=== PATIENT | female | born 1965 | race Caucasian/White ===

== ENCOUNTER 2016-07-27 11:32 | Emergency (ER) | payer BC ==
[~2016-07-27] VITALS: Ht 162.6 cm; Wt 90.8 kg
[~2016-07-27 11:32] MED LIST: ATEN-171 PO; CHOL100010 PO; MULT-506 PO; VLT/75 PO
[2016-07-27 11:46] VITALS: TEMP 36.9; Ht 162.6 cm; Wt 90.8 kg
[2016-07-27 12:07] VITALS: O2SAT 98
[2016-07-27] MEDS ORDERED: METHYLPREDNISOLONE 125 MG VIAL IV STA (12:10)
[2016-07-27] MEDS ORDERED: ALBUT/IPRATROP 3MG/0.5MG NEB 3 ML VIAL INH STA (12:10)
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
[2016-07-27] MEDS ORDERED: SERT25TA PO (12:20)
[2016-07-27 12:26] LABS: BASO % 0.2 %; BASO ABS # 0.03 K/uL (0-0.2); COMPLETE YES; EOS % 0.9 %; IG% 0.4 %; LYMPH % 32.1 %; LYMPH ABS # 4.54 K/uL (1.2-3.4); MEAN CELL VOLUME 91.7 fL (80-100); MEAN CORPUSCULAR HEMOGLOBIN 33.5 pg (25-34); MEAN CORPUSCULAR HGB CONC 36.5 g/dl (32-36); MEAN PLATELET VOLUME 9.8 fL (7.4-10.4); MONO % 5.5 %; NEUT % 60.9 %; PLATELET COUNT 315 K/uL (130-400); RED BLOOD COUNT 4.36 M/uL (4.2-5.4); WHITE BLOOD COUNT 14.14 K/uL (4.8-10.8)
[2016-07-27 12:35] LABS: PROTHROMBIN TIME (PATIENT) 10.5 SECONDS (9.0-12.0)
[2016-07-27 12:43] LABS: BUN/CREATININE RATIO 12.7 (10-20); CALCIUM 9.8 mg/dl (8.5-10.1); CREATININE 0.87 mg/dl (0.60-1.20); MAGNESIUM 1.8 mg/dl (1.8-2.4); POTASSIUM 3.3 mmol/L (3.5-5.1)
[2016-07-27 12:52] LABS: ALB/GLOB RATIO 1.1 (0.9-2); CKMB/CK RATIO 0.9 (0-3.0); THYROID STIMULATING HORMONE 1.92 uIu/ml (0.300-4.500)
[2016-07-27 12:58] LABS: PREG INTERNAL NEGATIVE QC NEG CLEAR BACKGROUND; PREG INTERNAL POSITIVE QC POS CONTROL LINE
--- NOTE | 2016-07-27 13:02 | DIAGNOSTIC IMAGING REPORT ---
CHEST ONE VIEW PORTABLE CLINICAL HISTORY: Atypical chest pain and shortness of breath COMPARISON STUDY: 06/04/2015 FINDINGS: The cardiac and mediastinal contours are normal. There is no evidence of focal pulmonary consolidation. There is no evidence of failure. No pleural effusions are visualized.[ There are postsurgical changes in the lower cervical spine. There are postsurgical changes involving the distal right clavicle. A linear opacity at left lung base is felt to be atelectatic. IMPRESSION: No active disease in the chest. Electronically signed by: David Rodríguez M.D. 07/27/2016 1:01 PM Dictated Date/Time: 07/27/2016 1:00 PM
[2016-07-27] MEDS ORDERED: ONDANSETRON INJ 2 MG/ML 2 ML VIAL IV STA (13:43)
[2016-07-27] MEDS ORDERED: MoRPHine SULFATE 4 MG/ML 1 ML CARP\\VIAL IV PRN (13:45)
[2016-07-27] MEDS ORDERED: OPTIRAY 320 IV PRN (14:00)
[2016-07-27 14:23] LABS: MANUAL MICROSCOPIC REQUIRED? NO; REVIEW REQ? NO; URINE APPEARANCE CLEAR (CLEAR); URINE BILIRUBIN NEG (NEG); URINE COLOR YELLOW; URINE NITRITE NEG (NEG); UROBILINOGEN NEG (NEG)
--- NOTE | 2016-07-27 14:26 | DIAGNOSTIC IMAGING REPORT ---
CT ANGIOGRAPHY OF THE CHEST, PULMONARY EMBOLUS PROTOCOL CLINICAL HISTORY: Chest pain and shortness of breath. COMPARISON STUDY: Chest radiograph June 04, 2015 and July 27, 2016. TECHNIQUE: Following IV administration of 92 mL of Optiray-320, helical axial images of the chest were obtained utilizing the pulmonary embolus protocol. Maximal intensity projections and sagittal and coronal reformats were viewed on an independent 3D workstation. IV contrast was administered without complication. CT DOSE: 610.80 mGycm FINDINGS: No pulmonary emboli are identified. The size of the heart is normal. There is no pericardial effusion. There is no evidence of thoracic aortic dissection. There is a small hiatal hernia. No areas of consolidation are identified. Linear and groundglass opacity suggest atelectasis. No pneumothorax or pleural effusions present. The bony thorax and upper abdomen are unremarkable. There is no thoracic lymphadenopathy. IMPRESSION: 1. No pulmonary emboli identified. 2. Linear and ground glass opacities suggestive of atelectasis. No consolidation to suggest pneumonia. 3. No thoracic aortic dissection. Electronically signed by: Herbert Soler M.D. 07/27/2016 2:25 PM Dictated Date/Time: 07/27/2016 2:17 PM
[2016-07-27] MEDS ORDERED: AZITHROMYCIN 250 MG TAB PO STA (14:41)
[2016-07-27 14:45] VITALS: BP 126/77; PULSE 94; O2SAT 94
[2016-07-27] MEDS ORDERED: HYDR-5688 PO (14:58)
[2016-07-27] MEDS ORDERED: VNTHFA/IN INH (14:58)
[2016-07-27] MEDS ORDERED: PRED20TA2 PO (14:58)
[2016-07-27] MEDS ORDERED: AZIT500T26 PO (14:58)
== END 2016-07-27 15:13 | disposition home or self-care (01) ==
LOC: C.EDB 11:33
DX: J40 Bronchitis, not specified as acute or chronic (principal); R07.2 Precordial pain; R00.0 Tachycardia, unspecified; J44.9 Chronic obstructive pulmonary disease, unspecified; I10 Essential (primary) hypertension; M19.90 Unspecified osteoarthritis, unspecified site; F17.200 Nicotine dependence, unspecified, uncomplicated; Z87.442 Personal history of urinary calculi; Z98.1 Arthrodesis status; Z98.890 Other specified postprocedural states; Z82.49 Family history of ischemic heart disease and other diseases of the circulatory system; Z83.3 Family history of diabetes mellitus; Z82.0 Family history of epilepsy and other diseases of the nervous system; Z79.52 Long term (current) use of systemic steroids

== ENCOUNTER 2016-08-30 21:08 | Emergency (ER) | payer BC ==
[~2016-08-30] VITALS: Ht 162.6 cm; Wt 93.9 kg
[~2016-08-30 21:08] MED LIST changes: +AZIT500T26 PO; +HYDR-5688 PO; -MULT-506 PO; +PRED20TA2 PO; +SERT25TA PO; -VLT/75 PO; +VNTHFA/IN INH
[2016-08-30 21:15] VITALS: TEMP 36.7; Ht 162.6 cm; Wt 93.9 kg
[2016-08-30] MEDS ORDERED: SODIUM CHLORIDE 0.9% 1000ML 1,000 ML IV STA (22:50)
[2016-08-30] MEDS ORDERED: ONDANSETRON INJ 2 MG/ML 2 ML VIAL IV STA (22:50)
[2016-08-30] MEDS ORDERED: MoRPHine SULFATE 4 MG/ML 1 ML CARP\\VIAL IV STA (22:50)
[2016-08-30 22:58] LABS: HEMATOCRIT 37.8 % (37-47); MEAN CELL VOLUME 96.9 fL (80-100); MEAN CORPUSCULAR HEMOGLOBIN 35.1 pg (25-34); MEAN CORPUSCULAR HGB CONC 36.2 g/dl (32-36); MEAN PLATELET VOLUME 10.1 fL (7.4-10.4); PLATELET COUNT 311 K/uL (130-400); WHITE BLOOD COUNT 9.26 K/uL (4.8-10.8)
[2016-08-30] MEDS ORDERED: VNTHFA/IN INH (23:05)
[2016-08-30] MEDS ORDERED: ATEN50TA21 PO (23:05)
[2016-08-30] MEDS ORDERED: CHOL1CAP95 PO (23:05)
[2016-08-30] MEDS ORDERED: ZLF/50 PO (23:05)
[2016-08-30 23:24] LABS: URINE APPEARANCE CLEAR (CLEAR); URINE BILIRUBIN NEG (NEG); URINE COLOR YELLOW; URINE EPITHELIAL CELL AUTO 20-30 /lpf (0-5); URINE NITRITE NEG (NEG); URINE SPECIFIC GRAVITY 1.018 (1.000-1.030); UROBILINOGEN NEG (NEG); ZZUR CULT IF INDIC CLEAN CATCH NO
[2016-08-30 23:26] LABS: ALB/GLOB RATIO 1.1 (0.9-2); BUN/CREATININE RATIO 16.6 (10-20); CALCIUM 9.5 mg/dl (8.5-10.1); CREATININE 0.9 mg/dl (0.60-1.20); POTASSIUM 3.6 mmol/L (3.5-5.1)
[2016-08-30 23:27] LABS: MANUAL MICROSCOPIC REQUIRED? NO; REVIEW REQ? NO
[2016-08-30 23:58] LABS: BASO % 0.4 %; BASO ABS # 0.04 K/uL (0-0.2); COMPLETE YES; EOS % 2.9 %; IG% 0.4 %; LYMPH % 53.6 %; LYMPH ABS # 4.96 K/uL (1.2-3.4); MONO % 6.3 %; NEUT % 36.4 %
[2016-08-31] MEDS ORDERED: MoRPHine SULFATE 4 MG/ML 1 ML CARP\\VIAL IV STA (00:11)
[2016-08-31] MEDS ORDERED: KETOROLAC TROMETHAMINE 30 MG/ML VIAL IV STA (00:11)
[2016-08-31] MEDS ORDERED: DEXAMETHASONE SOD INJ 10 MG/ML VIAL IV ONE (00:15)
[2016-08-31] MEDS ORDERED: CYCL10TA6 PO (01:05)
[2016-08-31] MEDS ORDERED: PRED50TA PO (01:05)
[2016-08-31] MEDS ORDERED: HYDR-5688 PO (01:05)
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
[2016-08-31] MEDS ORDERED: NORCO 5/325MG HOME PACK PO ONE (01:15)
[2016-08-31 01:17] VITALS: BP 119/76; PULSE 69; O2SAT 96
--- NOTE | 2016-08-31 06:35 | DIAGNOSTIC IMAGING REPORT ---
CT OF THE ABDOMEN AND PELVIS WITHOUT CONTRAST, STONE PROTOCOL CLINICAL HISTORY: Right flank pain. COMPARISON STUDY: CT of the abdomen and pelvis March 31, 2015. TECHNIQUE: Helical axial images of the abdomen and pelvis were obtained without IV or oral contrast according to renal stone protocol. FINDINGS: Lung bases are clear. No renal, ureteral or bladder calculi are present. There is no hydronephrosis. Unenhanced images of the liver, spleen, adrenal glands and pancreas are normal. There is no evidence for a bowel obstruction. The appendix is normal. A water attenuation 2.7 x 1.9 cm tubular structure within the posterior right hemipelvis is unchanged since exam of February 15, 2008. This is benign given stability. There is no lymphadenopathy. Skeletal structures are unremarkable. IMPRESSION: 1. No urinary calculi or hydronephrosis. 2. No acute process within the abdomen or pelvis on unenhanced exam. Normal appendix. Electronically signed by: Herbert Soler M.D. 08/31/2016 6:34 AM Dictated Date/Time: 08/31/2016 6:30 AM
== END 2016-08-31 01:18 | disposition home or self-care (01) ==
LOC: C.EDB 21:09
DX: R10.30 Lower abdominal pain, unspecified (principal); M19.90 Unspecified osteoarthritis, unspecified site; I10 Essential (primary) hypertension; Z98.1 Arthrodesis status; Z82.49 Family history of ischemic heart disease and other diseases of the circulatory system; Z83.3 Family history of diabetes mellitus; Z82.0 Family history of epilepsy and other diseases of the nervous system; F17.210 Nicotine dependence, cigarettes, uncomplicated; Z79.899 Other long term (current) drug therapy

== ENCOUNTER → 2017-01-23 | Outpatient (CLI) | payer BC ==
[~2017-01-23] MED LIST changes: -ATEN-171 PO; +ATEN50TA21 PO; -AZIT500T26 PO; -CHOL100010 PO; +CHOL1CAP95 PO; -PRED20TA2 PO; -SERT25TA PO; +ZLF/50 PO
== END | disposition home or self-care (01) ==
LOC: C.PATHSPEC 11:29
PROVIDERS: ATTEND Nurse Practitioner Family
DX: R31.0 Gross hematuria (principal)

== ENCOUNTER → 2017-02-08 | Outpatient (CLI) | payer BC ==
[2017-02-08 13:06] LABS: BLOOD UREA NITROGEN 11 mg/dl (7-18); BUN/CREATININE RATIO 13.3 (10-20); CREATININE 0.81 mg/dl (0.60-1.20)
== END | disposition home or self-care (01) ==
LOC: C.LABBFT 09:41
PROVIDERS: ATTEND Nurse Practitioner Family
DX: R31.0 Gross hematuria (principal)

== ENCOUNTER → 2017-02-13 | Outpatient (CLI) | payer BC ==
[~2017-02-13] MED LIST changes: +ACET-1256 PO; +IBUP-103 PO; +MULT-506 PO; +OPTIRAY 320 IV PRN; +POTASSIUM CHLO PO; +PRLSR20 PO; +RIZA10TA18 PO
--- NOTE | 2017-02-13 15:07 | DIAGNOSTIC IMAGING REPORT ---
ABD/PELVIS IV CONTRAST ONLY CLINICAL HISTORY: 52 years-old Female presenting with macroscopic hematuria. TECHNIQUE: Multidetector CT of the abdomen and pelvis was performed after the administration of intravenous contrast. IV contrast: 119 mL of Optiray 320. A dose lowering technique was used consistent with the principles of ALARA (as low as reasonably achievable). COMPARISON: 08/30/2016. CT DOSE (mGy.cm): The estimated cumulative dose is 1097.76. FINDINGS: Litigation Attorney Associate topogram: Unremarkable. Lung bases: Minimal dependent changes likely atelectasis. Normal heart size. Mild coronary artery calcification. No pericardial or pleural effusion. Liver: Normal morphology. Few scattered subcentimeter hypodensities likely hepatic cysts or hamartomas. Patent hepatic vasculature. Biliary: No intrahepatic or extrahepatic biliary ductal dilatation. Normal gallbladder. Pancreas: Normal. Spleen: Normal. Adrenal glands: Normal. Kidneys and ureters: Possible filling defect within a posterior calyx of the interpolar region of the right kidney (series 3 image 200), although this may relate to a prominent renal papilla. No other evidence of a filling defect within the renal collecting systems. No convincing evidence of a suspicious renal or urothelial mass. Subcentimeter hypodensity at the upper pole of the left kidney, indeterminate but likely simple cyst. Within limitations of the phase of contrast, no evidence of nephrolithiasis. No hydronephrosis. Ureters normal. Bladder: Normal. Pelvic organs: Uterus and ovaries normal. Bowel: Limited diverticulosis of the descending colon. Normal appendix. No bowel obstruction. Peritoneal cavity: No free fluid or intraperitoneal gas. Vasculature: Aorta and IVC patent and normal in caliber. Lymph nodes: No enlarged lymph nodes in the abdomen or pelvis. Abdominal wall: Normal. Musculoskeletal: Degenerative changes of the spine. IMPRESSION: 1. Apparent filling defect within a posterior calyx of the interpolar region of the right kidney most likely relates to a prominent renal papilla. No other evidence of a filling defect within the collecting systems. No suspicious renal or urothelial mass. Within limitations of phase of contrast, no evidence of nephrolithiasis. No obstruction. Electronically signed by: Serafin Corea M.D. 02/13/2017 3:05 PM Dictated Date/Time: 02/13/2017 2:57 PM
== END | disposition home or self-care (01) ==
LOC: C.CTS 14:14
PROVIDERS: ATTEND Nurse Practitioner Family
DX: R31.0 Gross hematuria (principal)

== ENCOUNTER → 2017-04-13 | Day surgery (SDC) | payer BC ==
[2017-03-20 09:12] VITALS: BMI 37.0
[2017-03-20 09:24] VITALS: BMI 37.0
--- NOTE | 2017-03-20 09:38 | PAT Medication Instructions ---
Service Date Mar 20, 2017. Current Home Medication List Acetaminophen (Tylenol), 1,000 MG PO PRN Albuterol Hfa (Ventolin Hfa), 1 PUFF INH Q4H PRN for SOB/Wheezing Atenolol & Chlorthalidone (Tenoretic 50MG/25MG), 1 TAB PO QAM Ibuprofen Tab (Advil), 400 MG PO PRN Multivitamin (Multivitamin), 1 TAB PO QAM Omeprazole (Prilosec), 20 MG PO QAM Rizatriptan Benzoate (Maxalt), 10 MG PO UD PRN for RN Sertraline HCl (Sertraline HCl), 50 MG PO QAM [Potassium Chlo], 1 TAB PO QAM Medication Instructions For Your Scheduled Surgery - Hold the following medications 2 weeks prior to surgery: Ibuprofen Tab (Advil), 400 MG PO PRN - Hold the following medications the morning of surgery: [Potassium Chlo], 1 TAB PO QAM Multivitamin (Multivitamin), 1 TAB PO QAM - Take the following medications the morning of surgery with a sip of water: Acetaminophen (Tylenol), 1,000 MG PO PRN (okay to take up to 4 hour prior to surgery if needed) Albuterol Hfa (Ventolin Hfa), 1 PUFF INH Q4H PRN for SOB/Wheezing (if needed) Atenolol & Chlorthalidone (Tenoretic 50MG/25MG), 1 TAB PO QAM Omeprazole (Prilosec), 20 MG PO QAM Rizatriptan Benzoate (Maxalt), 10 MG PO UD PRN for RN (if needed) Sertraline HCl (Sertraline HCl), 50 MG PO QAM - Take the following medications as scheduled the night before surgery: Rizatriptan Benzoate (Maxalt), 10 MG PO UD PRN for RN (if needed) Albuterol Hfa (Ventolin Hfa), 1 PUFF INH Q4H PRN for SOB/Wheezing (if needed) Acetaminophen (Tylenol), 1,000 MG PO PRN (if needed) If you have any questions please call us at [phone] or [phone] or [phone]
[2017-03-20 10:23] LABS: BASO % 0.4 %; BASO ABS # 0.03 K/uL (0-0.2); COMPLETE YES; EOS % 2.9 %; IG% 0.1 %; LYMPH % 37.9 %; LYMPH ABS # 3.18 K/uL (1.2-3.4); MEAN CELL VOLUME 95.6 fL (80-100); MEAN CORPUSCULAR HEMOGLOBIN 32.6 pg (25-34); MEAN CORPUSCULAR HGB CONC 34.1 g/dl (32-36); MONO % 5.4 %; NEUT % 53.3 %; PLATELET COUNT 296 K/uL (130-400); RED BLOOD COUNT 3.87 M/uL (4.2-5.4); WHITE BLOOD COUNT 8.39 K/uL (4.8-10.8)
[2017-03-20 10:28] LABS: URINE APPEARANCE CLEAR (CLEAR); URINE BILIRUBIN NEG (NEG); URINE COLOR YELLOW; URINE NITRITE NEG (NEG); URINE PH 5.5 (4.5-7.5); UROBILINOGEN NEG (NEG)
[2017-03-20 10:29] LABS: MANUAL MICROSCOPIC REQUIRED? NO; REVIEW REQ? NO
[2017-03-20 10:31] LABS: BUN/CREATININE RATIO 18.2 (10-20); CALCIUM 9.1 mg/dl (8.5-10.1); CREATININE 0.71 mg/dl (0.60-1.20)
[~2017-04-13] VITALS: Ht 162.6 cm; Wt 98.6 kg
[~2017-04-13] MED LIST changes: +ACET-749 PO; +ACETAMINOPHEN/CODEINE 300/30MG TAB PO PRN; +ATROPINE SULFATE 0.1 MG/ML 5ML SYR IV PRN; +BACITRACIN 50000 UNIT VIAL ONE; +BUPIVACAINE/EPINEPHRINE 0.5% MPF 1:200,000 30 ML VIAL ONE; -CHOL1CAP95 PO; +CLINDAMYCIN PHOS 2% VAG CR 40 GM TUBE ONE; +DEXAMETHASONE SOD INJ 4 MG/ML VIAL ONE; +DOCU-94 PO; +EpHEDrine SULFATE INJ 50 MG/ML AMP IV PRN; +FENTANYL CITRATE INJ 50 MCG/1 ML 2 ML VIAL IV PRN; +FENTANYL CITRATE INJ 50 MCG/1 ML 2 ML VIAL ONE; +GENTAMICIN INJ 120 MG in DEXTROSE 5% 100ML 100 ML IV SCH; -HYDR-5688 PO; +HYDROmorphone INJ 1 MG/ML SYR IV PRN; +LACTATED RINGER'S 1000ML 1,000 ML IV SCH; +LIDOCAINE HCL 2% 2 ML VIAL (20MG/ML) ONE; +MIDAZOLAM HCL 1 MG/ML 2ML VIAL ONE; +ONDANSETRON INJ 2 MG/ML 2 ML VIAL IV PRN; +ONDANSETRON INJ 2 MG/ML 2 ML VIAL ONE; -OPTIRAY 320 IV PRN; +PROPOFOL IV EMULSION 10 MG/ML 20 ML VIAL IV ONE; +SULF800T23 PO
[2017-04-13 09:29] VITALS: BP 119/70; PULSE 59; TEMP 36.9; O2SAT 97; Ht 162.6 cm; Wt 98.6 kg
--- NOTE | 2017-04-13 11:22 | History & Physical Bridge Note ---
H&P Re-Evaluation Bridge Note: I have examined the patient, reviewed the History & Physical and in the interval since the performance of the History & Physical I have noted the following changes of clinical significance: No changes noted
--- NOTE | 2017-04-13 13:12 | Discharge Instructions ---
Discharge Instructions Date of Service Apr 13, 2017. Admission Reason for Admission: Stress Urinary Incontinence Discharge Discharge Diagnosis / Problem: Stress urinary incontinence Discharge Goals Goal(s): Decrease discomfort, Improve disease control, Therapeutic intervention Activity Recommendations Activity Limitations: as noted below Lifting Limitations: no more than 10 pounds (x 6 weeks) Exercise/Sports Limitations: rest today, gradually increase as tolerated ( Light activity x 4 weeks) May Resume Sexual Activity: after follow-up appointment (when cleared by Dr. Stallworth) Shower/Bathe: tomorrow (no tub baths x 3 weeks) Driving or Machine Use: resume 3 days after discharge (Do not drive while taking narcotics. ) 1. You have been prescribed the antibiotic Bactrim DS. Finish all as directed. 2. Hold ibuprofen/Aleve x 3 days. 3. Do not take Tylenol in addition to Tylenol #3. 4. Follow-up with Dr. Stallworth as scheduled. Please call our office at [phone] if you need to reschedule for any reason. . Discharge Diet Recommended Diet: Regular Diet Procedures Procedures Performed: Mid Urethral Sling Transobturator Approach; Cystoscopy Pending Studies Studies pending at discharge: no Medical Emergencies . Who to Call and When: Medical Emergencies: If at any time you feel your situation is an emergency, please call 911 immediately. . Non-Emergent Contact Non-Emergency issues call your: Urologist Call Non-Emergent contact if: temperature is above 101.5, your pain is not controlled, your pain is worsening, your pain is unusual for you, your pain is concerning you, you have any medication questions . . "Provider Documentation" section prepared by Delfina Dolan. . VTE Core Measure Inpt VTE Proph given/why not?: SCD's [place] Drug Monitoring Program Search Results: patient reviewed within database, no issues identified
--- NOTE | 2017-04-13 13:18 | [facility] Post Operative Brief Note ---
Immediate Operative Summary Operative Date Apr 13, 2017. Pre-Operative Diagnosis Stress Urinary Incontinence Post-Operative Diagnosis Same as preop Procedure(s) Performed Mid Urethral Sling, Transobturator Approach; Cystoscopy Surgeon Dr. Julissa Stallworth Gift Officer Surgeon(s) Delfina Dolan NP Estimated Blood Loss 20 ml Findings Excellent sling placement, tension free, normal cystoscopy, mild cystocoele Specimens None per Surgeon Drains NA Anesthesia GALMA + local Complication(s) None Disposition Recovery Room / PACU
--- NOTE | 2017-04-13 13:24 | [facility] Operative Report ---
Operative Report Operative Date Apr 13, 2017. Pre-Operative Diagnosis Stress Urinary Incontinence Post-Operative Diagnosis Same as preop Procedure(s) Performed Mid Urethral Sling, Transobturator Approach; Cystoscopy Surgeon Dr. Julissa Stallworth Director Of Software Development Surgeon(s) Delfina Dolan NP Estimated Blood Loss 20 ml Findings Excellent sling placement, tension free, normal cystoscopy, mild cystocoele Specimens None per Surgeon Drains NA Anesthesia GALMA + local Complication(s) None Disposition Recovery Room / PACU Indications 52-year-old female with stress urinary incontinence demonstrated in office here today for mid urethral sling to manage her disease. Please see H&P for further details. SCDs were used for DVT prophylaxis and intravenous antibiotics provided informed gentamicin. Consent reviewed preoperatively with patient and family. Description of Procedure Patient was properly identified and brought into the operative suite after identification of appropriate consent of the chart. General anesthesia with laryngeal mask was initiated and patient was prepped and draped in the standard fashion for this procedure. Full timeout procedure was followed. Patient was placed in Trendelenburg and dorsal lithotomy with a weighted speculum in the vaginal canal. Bladder was emptied with a 16 [place] Shafer catheter and re- emptied prior to any trocar passes or manipulations. Allis clamp was placed under the meatus and anterior vaginal canal was anesthetized using local with epinephrine. Midline incision was made using a 15 blade and, using Metzenbaum scissors and peanuts was dissected to the pelvic sidewall on both sides creating a passage sufficiently large for the placement of the surgeon's finger. Local and 15 blade were used to make incisions at the superior aspect of the obturator fossa at the same level as the clitoris. Using a [employer] trans-obturator Trocar was passed first on the left-hand side then on the right into the vaginal incision. Cystoscopy using a 70 lens was performed after each trocar pass with complete distention of the bladder ensuring a lack of bladder injury from the trocar. Patient was noted to have a mild cystocele with no intravesical papillary lesions, masses or mucosal abnormalities or stones. Ureteral orifices were noted in the normal anatomic location and noted to be effluxing clear yellow urine. Great care was also taken to avoid buttonholing of the vaginal mucosa. After this was confirmed on each pass the sling was engaged and brought through the trans-obturator incisions until it lay in a tension-free fashion at the level of the mid urethra. Tensioning sutures were removed as was the sling sheath which was then divided at the level of the skin and buried in the subcutaneous tissues. Excellent tension-free location was again confirmed with easy passage of Metzenbaum scissors underneath the sling and the tensioning device within the sling itself was also removed. Vaginal incision was closed using a running 2-0 Vicryl suture and skin incisions were closed using Dermabond. Shafer catheter was removed after draining the bladder. Vaginal packing was placed and anesthesia was reversed. Patient was transferred to the recovery room in stable condition. Follow-up care: Patient will be discharged home after successful trial of void. Prescription for Colace, pain medication and antibiotics in the postoperative period are provided. Postoperative appointment is confirmed. Expected postoperative course is reviewed with the patient and family. Patient is instructed to contact us should she note any fevers, chills, nausea, vomiting or other difficulties in the postoperative period. I attest to the content of the Intraoperative Record and any orders documented therein. Any exceptions are noted below.
[2017-04-13 13:55] VITALS: BP 115/71; PULSE 59; TEMP 36.7; O2SAT 95
--- NOTE | 2017-04-13 13:56 | Anesthesiology Progress Note ---
Anesthesia Post Op Note Date & Time Apr 13, 2017 at 13:56 Vital Signs Pain Intensity: 0 Vital Signs Past 12 Hours Date Time Temp Pulse Resp B/P (MAP) Pulse Ox O2 Delivery O2 Flow Rate FiO2 04/13/17 13:45 36.6 58 16 119/78 94 Room Air 04/13/17 13:40 61 16 124/76 94 Room Air 04/13/17 13:30 59 16 117/76 95 Oxymask 04/13/17 13:20 60 16 123/81 100 Oxymask 04/13/17 13:10 37.1 68 16 142/86 96 Oxymask 10 04/13/17 09:29 36.9 59 16 119/70 (86) 97 Room Air Notes Mental Status: alert / awake / arousable, participated in evaluation Pt Amnestic to Procedure: Yes Nausea / Vomiting: adequately controlled Pain: adequately controlled Airway Patency, RR, SpO2: stable & adequate BP & HR: stable & adequate Hydration State: stable & adequate Anesthetic Complications: no major complications apparent
[2017-04-13 14:25] VITALS: BP 130/73; PULSE 65; O2SAT 95
[2017-04-13 14:55] VITALS: BP 131/77; PULSE 67; TEMP 36.6; O2SAT 97
== END | disposition home or self-care (01) ==
LOC: C.ACU 09:15
PROVIDERS: ATTEND Urology
DX: N39.3 Stress incontinence (female) (male) (principal); R31.0 Gross hematuria; I10 Essential (primary) hypertension; N20.0 Calculus of kidney; E66.9 Obesity, unspecified; Z68.37 Body mass index [BMI] 37.0-37.9, adult; M17.12 Unilateral primary osteoarthritis, left knee; F32.9 Major depressive disorder, single episode, unspecified; F41.1 Generalized anxiety disorder; E78.5 Hyperlipidemia, unspecified; Z98.890 Other specified postprocedural states; Z98.51 Tubal ligation status; Z88.5 Allergy status to narcotic agent; Z88.1 Allergy status to other antibiotic agents; Z87.891 Personal history of nicotine dependence; Z82.49 Family history of ischemic heart disease and other diseases of the circulatory system; Z84.1 Family history of disorders of kidney and ureter

== ENCOUNTER → 2017-05-12 | Outpatient (CLI) | payer BC ==
[~2017-05-12] MED LIST changes: -ACETAMINOPHEN/CODEINE 300/30MG TAB PO PRN; -ATROPINE SULFATE 0.1 MG/ML 5ML SYR IV PRN; -BACITRACIN 50000 UNIT VIAL ONE; -BUPIVACAINE/EPINEPHRINE 0.5% MPF 1:200,000 30 ML VIAL ONE; -CLINDAMYCIN PHOS 2% VAG CR 40 GM TUBE ONE; -DEXAMETHASONE SOD INJ 4 MG/ML VIAL ONE; -DOCU-94 PO; -EpHEDrine SULFATE INJ 50 MG/ML AMP IV PRN; -FENTANYL CITRATE INJ 50 MCG/1 ML 2 ML VIAL IV PRN; -FENTANYL CITRATE INJ 50 MCG/1 ML 2 ML VIAL ONE; -GENTAMICIN INJ 120 MG in DEXTROSE 5% 100ML 100 ML IV SCH; -HYDROmorphone INJ 1 MG/ML SYR IV PRN; -LACTATED RINGER'S 1000ML 1,000 ML IV SCH; -LIDOCAINE HCL 2% 2 ML VIAL (20MG/ML) ONE; -MIDAZOLAM HCL 1 MG/ML 2ML VIAL ONE; -ONDANSETRON INJ 2 MG/ML 2 ML VIAL IV PRN; -ONDANSETRON INJ 2 MG/ML 2 ML VIAL ONE; -PROPOFOL IV EMULSION 10 MG/ML 20 ML VIAL IV ONE; -SULF800T23 PO
--- NOTE | 2017-05-12 11:43 | DIAGNOSTIC IMAGING REPORT ---
LUMBAR SPINE W/O CONTRAST HISTORY: Pain BACK PAIN TECHNIQUE: Multiplanar multisequence MRI of the lumbar spine was performed without the use of contrast. COMPARISON: 11/26/2014 FINDINGS: For the purpose of the report the L5-S1 disc space will be located on axial image 23 of 25. Considerable degenerative disc changes throughout. This is most prominent at L2-L3 and is unchanged from the prior exam. L1-L2: Mild broad-based bulging disc similar as compared to the prior study. Minimal impact anterior thecal sac. L2-L3: Broad-based disc herniation. Significant narrowing of the right as well as left neural foramina. These findings are perhaps slightly progressive as compared to the prior study. L3-L4: Broad-based bulging disc. Minimal impact anterior thecal sac. Neuroforamina patent bilaterally. L4-L5: Slightly progressive multifactorial narrowing of the spinal canal. Mild narrowing neuroforamina bilaterally similar compared to the prior study. L5-S1: No significant central canal or neural foraminal narrowing. IMPRESSION: 1. Broad-based disc herniation L2-L3 mildly progressive compared to the prior study. Moderate narrowing neuroforamina bilaterally also slightly progressive 2. Multifactorial narrowing of the spinal canal at L4-L5 also slightly progressive from the prior exam. Mild/moderate narrowing of the neuroforamina bilaterally also slightly progressive 3. Considerable degenerative disc change throughout the remainder of the lumbar spine unaltered from the prior exam. The above report was generated using voice recognition software. It may contain grammatical, syntax or spelling errors. Electronically signed by: Spenser Beaver M.D. 05/12/2017 11:41 AM Dictated Date/Time: 05/12/2017 11:36 AM
== END | disposition home or self-care (01) ==
LOC: C.MRI 09:44
PROVIDERS: ATTEND Physician Assistant
DX: M43.16 Spondylolisthesis, lumbar region (principal); M51.36 Other intervertebral disc degeneration, lumbar region; M51.26 Other intervertebral disc displacement, lumbar region; M48.061 Spinal stenosis, lumbar region without neurogenic claudication

== ENCOUNTER 2017-10-26 21:06 | Emergency (ER) | payer BC ==
[~2017-10-26] VITALS: Ht 165.1 cm; Wt 93.0 kg
[~2017-10-26 21:06] MED LIST changes: -ACET-749 PO; -ATEN50TA21 PO; -VNTHFA/IN INH; -ZLF/50 PO
[2017-10-26 21:08] VITALS: TEMP 36.6; Ht 165.1 cm; Wt 93.0 kg
[2017-10-26] MEDS ORDERED: POTA-74 PO (22:05)
[2017-10-26] MEDS ORDERED: KETOROLAC TROMETHAMINE 60 MG/2 ML VIAL IM STA (22:13)
--- NOTE | 2017-10-26 22:47 | DIAGNOSTIC IMAGING REPORT ---
THORACIC SPINE 3 VIEWS, LUMBAR SPINE 5 VIEWS HISTORY: back pain, L>R COMPARISON: Lumbar spine MRI 05/12/2017. Thoracic spine radiograph 09/02/2014. FINDINGS: There is no fracture. Cervical spinal fusion hardware is again noted. Mild degenerative disease throughout the majority of the thoracic spine. Mild to moderate disc space narrowing and endplate osteophytes within the lower thoracic spine at T11-T12 and T12-L1. There is also moderate disc space narrowing at L1-L2 and mild disc space narrowing at L4-L5. No change in the grade I anterolisthesis of L4 and L5. Moderate facet degenerative changes within the lower lumbar spine. Severe disc space narrowing at L2-L3 is also unchanged. The sacrum is intact. IMPRESSION: No fracture or subluxation within the thoracic spine. Degenerative changes as described above. This is not significantly changed. Electronically signed by: Elmer Bullock M.D. 10/26/2017 10:45 PM Dictated Date/Time: 10/26/2017 10:41 PM
[2017-10-26] MEDS ORDERED: VNTHFA/IN INH (23:05)
[2017-10-26] MEDS ORDERED: ATEN50TA21 PO (23:05)
[2017-10-26] MEDS ORDERED: ZLF/50 PO (23:05)
[2017-10-26 23:30] VITALS: BP 130/74; PULSE 68; O2SAT 98
[2017-10-26] MEDS ORDERED: NORCO 5/325MG HOME PACK PO ONE (23:30)
[2017-10-26] MEDS ORDERED: HYDR-5688 PO (23:37)
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
== END 2017-10-26 23:49 | disposition home or self-care (01) ==
LOC: C.EDB 21:06 → C.EDA 23:49
DX: M54.9 Dorsalgia, unspecified (principal); I10 Essential (primary) hypertension; M19.90 Unspecified osteoarthritis, unspecified site; Z79.899 Other long term (current) drug therapy; F17.200 Nicotine dependence, unspecified, uncomplicated

== ENCOUNTER → 2017-12-29 | Outpatient (CLI) | payer BC ==
[~2017-12-29] MED LIST changes: +ATEN50TA21 PO; +HYDR-5688 PO; +POTA-74 PO; -POTASSIUM CHLO PO; +VNTHFA/IN INH; +ZLF/50 PO
--- NOTE | 2017-12-29 07:59 | DIAGNOSTIC IMAGING REPORT ---
PELVIS NO IV/ORAL CONT (CT) CLINICAL HISTORY: K62.89 Rectal painM53.3 Coccygeal painNO ORAL OR IV CONTRAST E X TECHNIQUE: Transaxial acquisition with multi axial reformatted images COMPARISON STUDY: 02/13/2017 FINDINGS: Nonobstructive bowel pattern. Normal appendix. Uterus is anteflexed. 2 cm right ovarian cyst unchanged in the prior study. No significant free fluid within the pelvic cul-de-sac. The hips are symmetric bilaterally. No evidence for acetabular protrusion. No lytic or blastic process. Coccygeal segments are angled anteriorly. This is consistent with coccydynia. Bladder is midline. No acute bony abnormality is present. IMPRESSION: 1. Coccygeal segments are angled anteriorly at the sacrococcygeal junction. 2. This appearance is consistent with coccydynia. 3. 2 cm right ovarian cyst unchanged from prior exams. 4. Study is otherwise unremarkable. The above report was generated using voice recognition software. It may contain grammatical, syntax or spelling errors. Electronically signed by: Spenser Beaver M.D. 12/29/2017 7:57 AM Dictated Date/Time: 12/29/2017 7:52 AM
== END | disposition home or self-care (01) ==
LOC: C.CTS 07:02
PROVIDERS: ATTEND Surgery
DX: K62.89 Other specified diseases of anus and rectum (principal); M53.3 Sacrococcygeal disorders, not elsewhere classified; N83.201 Unspecified ovarian cyst, right side